=== PATIENT | female | born 1995 | race Caucasian/White ===

== ENCOUNTER 2021-07-25 10:06 | Emergency (ER) | payer OTHER ==
[~2021-07-25 10:06] MED LIST: AMOXICILLIN250 MG PO; AMOXICILLIN500 MG PO; BACTRIM DS 8001 TA1 PO; BENADRYL25 MG PO; BIRTH CONTROL1 EACH PO; DEPO PROVER150 MG/M1 IM; KEFLEX500 MG PO; MIRALAX POWDER255 GM PO; MOTRIN400 MG PO; MOTRIN800 MG PO; NAPROSYN500 MG PO; NO DAILY MEDS; PYRIDIUM200 MG PO; TYLENOL W/CODEI1 TA2 PO; VOLTAREN75 MG PO; ZANTAC 7575 MG PO; ZOFRAN ODT4 MG SL
[2021-07-25 10:36] LABS: BILIRUBIN Negative (Negative); BLOOD 3+ (Negative); CLARITY Turbid (Clear); COLOR Yellow (Yellow); GLUCOSE Negative (Negative); KETONE Negative (Negative); LEUKO ESTERASE Negative (Negative); NITRITE Negative (Negative); PH 5.5 (4.5-8.0); SPECIFIC GRAVITY 1.025 (1.001-1.030)
[2021-07-25 10:46] LABS: BASO # 0.1 10*3/uL (0.0-0.1); BASO % 0.8 % (0.0-1.0); EOS # 0.4 10*3/uL (0.0-0.4); EOS % 4.4 % (1.0-4.0); HEMATOCRIT 39.1 % (37.0-47.0); LYMPH # 1.9 10*3/uL (1.3-4.4); LYMPH % 22.5 % (27.0-41.0); MEAN CELL VOLUME 78.7 fl (81.0-99.0); MEAN CORPUSCULAR HGB 24.7 pg (27.0-31.0); MEAN CORPUSCULAR HGB CONC 31.5 g/dl (33.0-37.0); MEAN PLATELET VOLUME 9.6 fl (9.6-12.3); MONO # 0.5 10*3/uL (0.1-1.0); MONO % 5.9 % (3.0-9.0); NEUT # 5.5 10*3/uL (2.3-7.9); NEUT % 66.3 % (47.0-73.0); PLATELET COUNT AUTOMATED 343 10*3/uL (130-400); RED BLOOD COUNT 4.97 10*6/uL (4.10-5.10); RED CELL DISTRI WIDTH 15.1 % (0-14.5); WHITE BLOOD COUNT 8.3 10*3/uL (4.8-10.8)
[2021-07-25 10:47] LABS: BACTERIA TRACE; RBC 51-100 rbc/hpf (0-2); WBC 0-2 wbc/hpf (0-5)
[2021-07-25 11:01] LABS: ALBUMIN 3.2 gm/dl (3.1-4.5); ALKALINE PHOSPHATASE 97 U/L (45-117); BUN 9 mg/dl (7-24); CHLORIDE 107 mmol/L (98-107); CREATININE 0.75 mg/dL (0.55-1.02); LIPASE 68 U/L (73-393); POTASSIUM 3.9 mmol/L (3.5-5.1); SGOT/AST 19 IU/L (3-35); SGPT/ALT 32 U/L (12-78); SODIUM 138 mmol/L (136-145); TOTAL PROTEIN 6.8 gm/dL (6.4-8.2)
[2021-07-25] MEDS ORDERED: FLOMAX0.4 MG PO (12:50)
[2021-07-25] MEDS ORDERED: TYLENOL325 M1 PO (12:50)
[2021-07-25] MEDS ORDERED: HYDROCODONE-AC1 EAC1 PO (12:50)
[2021-07-25] MEDS ORDERED: NAPROXEN250 MG PO (12:50)
[2021-07-25 12:56] VITALS: BP 144/78
== END 2021-07-25 12:55 | disposition home or self-care (01) ==
LOC: ED 10:06
PROVIDERS: Emergency Medicine
DX: N20.0 Calculus of kidney (principal); K62.5 Hemorrhage of anus and rectum

== ENCOUNTER → 2021-08-05 | Outpatient (CLI) | payer OTHER ==
[~2021-08-05] MED LIST changes: +FLOMAX0.4 MG PO; +HYDROCODONE-AC1 EAC1 PO; +NAPROXEN250 MG PO; +TYLENOL325 M1 PO
== END | disposition home or self-care (01) ==
LOC: RAD 09:35
PROVIDERS: ATTEND Urology
DX: N20.0 Calculus of kidney (principal)

== ENCOUNTER 2022-02-20 17:09 | Emergency (ER) | payer OTHER ==
[~2022-02-20] VITALS: Ht 167.6 cm; Wt 104.3 kg
[2022-02-20 17:18] VITALS: BP 136/80
[2022-02-20 17:50] LABS: BASO # 0.1 10*3/uL (0.0-0.1); EOS # 0.3 10*3/uL (0.0-0.4); LYMPH # 1.4 10*3/uL (1.3-4.4); LYMPH % 20.4 % (27.0-41.0); MEAN CELL VOLUME 79.5 fl (81.0-99.0); MEAN CORPUSCULAR HGB 25.1 pg (27.0-31.0); MEAN CORPUSCULAR HGB CONC 31.6 g/dl (33.0-37.0); MEAN PLATELET VOLUME 9.7 fl (9.6-12.3); MONO # 0.6 10*3/uL (0.1-1.0); MONO % 8.9 % (3.0-9.0); NEUT # 4.4 10*3/uL (2.3-7.9); NEUT % 65.6 % (47.0-73.0); PLATELET COUNT AUTOMATED 296 10*3/uL (130-400); RED BLOOD COUNT 4.78 10*6/uL (4.10-5.10); WHITE BLOOD COUNT 6.8 10*3/uL (4.8-10.8)
[2022-02-20] MEDS ORDERED: POTASSIUM CHLO20 ME4 PO (18:00)
[2022-02-20] MEDS ORDERED: IBU800 M1 PO (18:00)
[2022-02-20 18:02] LABS: ACT PARTIAL THROMBO TIME 26.3 SECONDS (20.0-32.1)
[2022-02-20 18:07] LABS: ALKALINE PHOSPHATASE 83 U/L (45-117); BUN 11 mg/dl (7-24); CHLORIDE 110 mmol/L (98-107); CREATININE 0.63 mg/dL (0.55-1.02); POTASSIUM 3.9 mmol/L (3.5-5.1); SGOT/AST 16 IU/L (3-35); SGPT/ALT 22 U/L (12-78); SODIUM 141 mmol/L (136-145); TOTAL PROTEIN 6.4 gm/dL (6.4-8.2)
[2022-02-20 18:42] LABS: BILIRUBIN Negative (Negative); BLOOD Negative (Negative); CLARITY Clear (Clear); COLOR Yellow (Yellow); GLUCOSE Negative (Negative); KETONE Negative (Negative); LEUKO ESTERASE 1+ (Negative); NITRITE Negative (Negative); SPECIFIC GRAVITY <= 1.005 (1.001-1.030); UROBILINOGEN 0.2 E.U./dl (0.0-1.0)
[2022-02-20 18:52] LABS: BACTERIA 1+
== END 2022-02-20 21:11 | disposition home or self-care (01) ==
LOC: ED 17:09
PROVIDERS: Nurse Practitioner Family
DX: B34.9 Viral infection, unspecified (principal); Z20.822 Contact with and (suspected) exposure to COVID-19

== ENCOUNTER 2024-09-08 17:55 | Emergency (ER) | payer OTHER ==
[~2024-09-08] VITALS: Ht 170.1 cm; Wt 88.5 kg
[~2024-09-08 17:55] MED LIST changes: +IBU800 M1 PO; +POTASSIUM CHLO20 ME4 PO
[2024-09-08 18:23] VITALS: BP 132/86
[2024-09-08] MEDS ORDERED: TERBINAFINE250 MG PO (18:34)
== END 2024-09-08 18:40 | disposition home or self-care (01) ==
LOC: ED 17:55
DX: B35.0 Tinea barbae and tinea capitis (principal); Z88.1 Allergy status to other antibiotic agents; Z88.8 Allergy status to other drugs, medicaments and biological substances; Z98.890 Other specified postprocedural states

== ENCOUNTER 2024-09-19 21:53 | Emergency (ER) | payer OTHER ==
[~2024-09-19] VITALS: Ht 170.1 cm; Wt 90.7 kg
[2024-09-19 21:53] VITALS: BP 134/90
[~2024-09-19 21:53] MED LIST changes: +TERBINAFINE250 MG PO
[2024-09-19] MEDS ORDERED: SODIUM CHLORIDE 0.9% 1,000 ML IV ONE (22:15)
[2024-09-19] MEDS ORDERED: Ketorolac Tromethamine 30 MG/ML VIAL IV ONE (22:15)
[2024-09-19] MEDS ORDERED: Ondansetron Hydrochloride 4 MG/2 ML VIAL IV ONE (22:15)
[2024-09-19] MEDS ORDERED: diphenhydrAMINE hydrochloride 50 MG/ML VIAL IV ONE (22:15)
== END 2024-09-20 00:06 | disposition home or self-care (01) ==
LOC: ED 21:53
DX: B34.9 Viral infection, unspecified (principal); H53.149 Visual discomfort, unspecified; R51.9 Headache, unspecified; Z88.1 Allergy status to other antibiotic agents; Z88.8 Allergy status to other drugs, medicaments and biological substances; Z98.890 Other specified postprocedural states